=== PATIENT | male | born 1945 | race Caucasian/White ===

== ENCOUNTER 2016-08-18 13:12 | Day surgery (SDC) | payer MEDICARE ==
[~2016-08-18] VITALS: Ht 180.3 cm; Wt 75.0 kg
[~2016-08-18 13:12] MED LIST: 0.9% Sodium Chloride 1,000 ML IV SCH; DIAZ5TAB3 PO; LISI10TA PO; MELA3TAB35 PO; MULT-666 PO; NAPR220C11 PO; OMEG-38 PO; RED600CA2 PO; Sodium Chloride LOK Flush 10 mL Syringe IV PRN; TRAZ-115 PO; fentaNYL-PF 50 mCg/mL 2 mL Inj IVPUSH PRN
[2016-08-18 14:20] VITALS: BP 115/72; PULSE 87; RESP 14; O2SAT 97
[2016-08-18 15:27] VITALS: BP 129/80; PULSE 75; RESP 12; O2SAT 98
[2016-08-18 15:37] VITALS: BP 113/69; PULSE 73; RESP 14; O2SAT 100
[2016-08-18 15:39] VITALS: BP 126/74; PULSE 77; RESP 14; O2SAT 97
--- NOTE | 2016-08-18 16:01 | ENDO ---
[address] [address] ENDOSCOPY PROCEDURE PATIENT: ANNI CLARK : 1945 MR#: [id number] ADMIT: 08/18/2016 JOB ID: [id number] DATE: 08/18/2016 PROCEDURE: Colonoscopy. INDICATION: Screening. The patient's ASA classification is 2. Mallampati score is 2. CURRENT MEDICATIONS: 1. Versed 5 mg. 2. Fentanyl 100 mcg. INSTRUMENT USED: PCF H 180 AL. PREPARATION QUALITY: Fair. PROCEDURE DETAILS: After informed consent was obtained, the patient was brought into the GI suite, where he was placed on oxygen via nasal cannula and monitored with continuous pulse oximeter, telemetry and blood pressure monitoring. A time-out was performed. Then, he was placed in a left lateral decubitus position. Medications were administered for sedation. Digital rectal examination was performed. It is unremarkable. The colonoscope was then inserted into the rectum and advanced under direct visualization to the cecum, which was identified by the presence of the ileocecal valve and appendiceal orifice. Once the cecum was reached, the colonoscope was then withdrawn back in the rectum. Mucosa and lumen were examined. In the rectum, retroflexion was performed. Following retroflexion, remaining air in the rectum was suctioned, and the procedure was completed. FINDINGS: 1. In the sigmoid colon, there were three polyps that ranged in size from 3-5 mm, all removed with a cold snare. 2. Scattered diverticula were seen in the sigmoid colon. IMPRESSION: 1. Three sigmoid colon polyps. 2. Left-sided sigmoid diverticulosis. RECOMMENDATIONS: Repeat colonoscopy pending polyp pathology results. COMPLICATIONS: None. ESTIMATED BLOOD LOSS: Less than 5 mL.
--- NOTE | 2016-08-22 12:45 | PATH ---
SURGICAL PATHOLOGY Attending Physician:Velma Zazueta CASE STATUS: Signed Out PATIENT NAME: ANNI CLARK PID: [id number] : 1945 DATE COLLECTED:08/18/2016 00:00 SPECIMEN: Colon, Biopsy CLINICAL HISTORY: 1). SIGMOID COLON POLYPS X3 FINAL DIAGNOSIS: 1.SIGMOID COLON POLYPS: HYPERPLASTIC POLYPS (THREE). ICD10 CODE D12.6 GROSS DESCRIPTION: The specimen is received in one formalin filled container labeled with the patient's name, sublabeled "sigmoid colon polyp x3" and consists of 3 portions of tissue which aggregate to 0.4 x 0.4 x 0.3 CM. The specimen is entirely submitted in one cassette. 08/19/2016 [facility] MICRO DESCRIPTION: See diagnosis. ICD-9 CODES: CPT CODES: 1: 93404 Electronically Signed Out Kana Hinds MD [facility] Pathology [facility] [address], [place] [address] Technical component performed at [facility], [facility] [address], [address]
== END 2016-08-18 23:59 | disposition home or self-care (01) ==
LOC: END 13:12
PROVIDERS: ATTEND Internal Medicine Gastroenterology
DX: Z12.11 Encounter for screening for malignant neoplasm of colon (principal); Z86.010 Personal history of colon polyps; D12.5 Benign neoplasm of sigmoid colon; K57.30 Diverticulosis of large intestine without perforation or abscess without bleeding; I10 Essential (primary) hypertension; L57.0 Actinic keratosis; E78.5 Hyperlipidemia, unspecified; N40.0 Benign prostatic hyperplasia without lower urinary tract symptoms; Z85.828 Personal history of other malignant neoplasm of skin
CPT/HCPCS: 45385; 88305; G0500; J2250; J3010; J7030